=== PATIENT | male | born 1970 | race Caucasian/White ===

== ENCOUNTER → 2019-12-31 | Outpatient (CLI) | payer BC, OTHER ==
[~2019-12-31] VITALS: Ht 177.8 cm; Wt 99.8 kg
[~2019-12-31] MED LIST: LEXAPRO20 MG PO; LIPITOR40 MG PO; LISINOPRIL-HCT1 EAC2 PO
--- NOTE | ~2019-12-31 | HPC ---
[facility] [place] [address] PAIN MANAGEMENT CONSULTATION Name: DARIANA TRUJILLO Room #: REG [facility] Autumn.#: [id number] Admission: 12/31/19 Attend Phys: Earnest Delgado MD Discharge: Date of : 68 Report #: [id number] THIS REPORT FOR: cc: Dina Arredondo MD,Yasmin Delgado,Earnest Nguyen MD ~ CC: Dina Wells MD DATE OF SERVICE: 12/31/2019 CHIEF COMPLAINT: Low back pain with radiation down the posterior aspect of both hips and legs. HISTORY OF PRESENT ILLNESS: The patient is a pleasant 49-year-old gentleman who I am seeing today at the request of Dr. Wells for assessment regarding lumbar radiculopathy. He has a history of back pain that dates back a few years. He underwent a lumbar laminectomy in 2019. He has recovered, although he had a rough beginning. He had a postoperative superficial wound infection, which fortunately did not extend down into his spinal canal and he did not suffer from meningitis, but he was required to return to the hospital and placed on intravenous antibiotics. After 2-3 months of healing with excellent physical therapy, exercise and even a 40-pound weight loss from 260 pounds down to 220, he continues to complain of tightness and an ache in the gluteal muscles and radiating through the back of his legs. It is made worse with any yard work, standing or exercise and it is improved by stretching, massage. He was seen by Dr. Buenrostro and [facility] recommended an ultrasound-guided piriformis injection, which he had 3 months ago, was successful. It provided quite a bit of pain relief lasting over a month, but the pain is now returning. Her repeat MRI was obtained. The MRI shows moderate to severe central spinal stenosis at 4-5, which includes moderate right and severe left neural foraminal narrowing. This would correspond the L4 nerve root; however, the central stenosis could certainly be contributing to his bilateral radiating low back pain. There would be some question about whether or not the piriformis injections were diagnostic. Unfortunately, I do not believe that they are. There has been some evidence that anesthetizing a peripheral nerve can provide some lasting benefit even if the pain generator is higher. MEDICATIONS: Lisinopril/hydrochlorothiazide 20/25, Lexapro 20 mg daily, atorvastatin 40 mg daily. He was given a prescription for clonazepam 0.5 mg on 12/21/[address] Wells and has been taking that daily as well. He is on testosterone and receives monthly prescriptions for that from [facility] [place] [address] PAIN MANAGEMENT CONSULTATION Name: DARIANA TRUJILLO Room #: REG [facility] Goyal#: [id number] Admission: 12/31/19 Attend Phys: Earnest Delgado MD Discharge: Date of : 68 Report #: [id number] ALLERGIES: None listed. PAST MEDICAL HISTORY: Hypertension and the 2 back surgeries, first in February 2019 and I and D of back wound in March. Full recovery. SOCIAL HISTORY: He is , one child. Denies tobacco. Enjoys alcoholic seltzer and drinks 2-3 nightly. 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 He likes to do yard work and works out on a regular basis. PHYSICAL EXAMINATION: GENERAL: He is a muscular appearing 49-year-old, 5 feet 10 inches, 220 pounds. BMI is 31.6. VITAL SIGNS: Blood pressure is 115/78, heart rate 89, respirations 15, O2 sat 96% on room air with COVID mask. Pain intensity 3/10. CHEST: Clear. CARDIAC: Rhythm is regular. MUSCULOSKELETAL: Moves independently from sitting to standing position, ambulates with mild antalgic features. He has good range of motion of the lumbar spine. There is tenderness across the lumbosacral segment and a small scar from previous surgery. It should be noted that he has quite a bit of acneiform rash across the torso, which may be secondary to testosterone. Straight leg raising is only mildly positive in both the sitting and supine position. There is no loss of strength. Mild loss of sensation in the lateral calf on the left. Deep tendon reflexes are trace bilaterally at knees and ankles and symmetrical. MRI scan was reviewed, both the report and the films and I showed them to the patient. He has an L4-L5 broad-based circumferential disk bulging with facet hypertrophy. There are some small facet joint effusions. This creates moderate to severe spinal stenosis at L4-L5 and neural foraminal narrowing as described. IMPRESSION: Lumbar radiculopathy. RECOMMENDATIONS: Lumbar epidural injection, I think is reasonable. I would inject him just above the stenosis at lumbar 3-4. Followup visit is scheduled for the injection in 1-2 weeks. By: [id number] Earnest Delgado MD /nt
[2019-12-31 14:40] VITALS: BP 115/78
--- NOTE | 2019-12-31 15:01 | NUR ---
Pain Clinic Assessment: 1. History of Osteoarthritis: LUMBAR History of Rheumatoid Arthritis: Not Applicable 2. Height: 5 ft. 10 in. 177.8 cm. Weight: 220.0 lb. oz. 99.792 kg. Patient's BMI: 31.6 3. Vital Signs: BP: 115/78 Pulse: 89 Resp: 16 Temp: 02 Sat: 96 ECG Mon: 4. Pain Intensity: 3 5. Fall Risk: Dizziness: N Needs help standing or walking: N Fallen in the last 3 months: N Fall risk comments: 6. Patient on Blood Thinner: None 7. History of Hypertension: Y 8. Opioid Therapy greater than 6 weeks: N Opiate Contract Signed: 9. Risk Assessment Tool Provided: LOW 10. Functional Assessment Tool: 11. Recreational Drug Use: Never Drug Type: Tobacco Use: Never Smoker Tobacco Type: Amount or Packs/day: How Many Years: Alcohol Use: Yes Frequency: Daily Quant: 2-3 BEERS
== END ==
LOC: PAIN 07:02
PROVIDERS: ATTEND Anesthesiology Pain Medicine
DX: M54.12 Radiculopathy, cervical region (principal)

== ENCOUNTER → 2020-01-10 | Outpatient (CLI) | payer BC, OTHER ==
[~2020-01-10] VITALS: Ht 177.8 cm; Wt 96.3 kg
--- NOTE | ~2020-01-10 | HPC ---
[facility] [place] [address] PAIN MANAGEMENT CONSULTATION Name: DARIANA TRUJILLO Room #: REG [facility] Autumn.#: [id number] Admission: 01/10/20 Attend Phys: Earnest Delgado MD Discharge: Date of : 68 Report #: [id number] THIS REPORT FOR: cc: Maria T Wells MD, Sara A. MD Morgan, Richard L. MD ~ CC: Dina Wells MD DATE OF SERVICE: 01/10/2020 Followup visit for lumbar epidural injection. I saw the patient on 12/31/2019. We were unable to perform the injection on that day due to preauthorization requirements. He has returned today for the injection. I reviewed the procedure with him, potential risks and benefits. We reviewed his MRI scan, which shows an L4-L5 broad disk with facet hypertrophy and spinal stenosis. Discussed our plan to go just above at L3-L4. Questions were answered. IMPRESSION: Lumbar radiculopathy, post-laminectomy syndrome. PROCEDURE: L3-L4 epidural injection under fluoroscopic guidance. PROCEDURE NOTE: After both written and informed consent to include risk of spinal cord damage, increased pain, weakness and dural puncture, the patient was taken to the fluoroscopy suite, placed in the prone position. After sterile prep and drape, a skin wheal with lidocaine was raised. A 22-gauge epidural Tuohy needle was inserted in the midline at L3-L4 with good loss to resistance. Negative aspiration for cerebrospinal fluid or blood was noted. Then 1 mL of Omnipaque under biplanar fluoroscopy showed good spread within the epidural space. This was followed with 80 mg of triamcinolone, 0.5% lidocaine was then injected to flush the needle; it was removed. The patient was monitored for an appropriate period of time and discharged in good and stable condition. He tolerated the procedure well and was taken to recovery room for observation. Followup visit planned in 1-2 months as needed. Series of injections not indicated at this point, but we will see if he needs another injection at a followup visit. By: [id number] Earnest Delgado MD /nt
[2020-01-10 14:06] VITALS: BP 125/89
--- NOTE | 2020-01-10 14:13 | NUR ---
Pain Clinic Assessment: 1. History of Osteoarthritis: LUMBAR History of Rheumatoid Arthritis: Not Applicable 2. Height: 5 ft. 10 in. 177.8 cm. Weight: 212.2 lb. oz. 96.253 kg. Patient's BMI: 30.4 3. Vital Signs: BP: 125/89 Pulse: 96 Resp: 16 Temp: 02 Sat: 97 ECG Mon: 4. Pain Intensity: 4 5. Fall Risk: Dizziness: N Needs help standing or walking: N Fallen in the last 3 months: N Fall risk comments: 6. Patient on Blood Thinner: None 7. History of Hypertension: Y 8. Opioid Therapy greater than 6 weeks: N Opiate Contract Signed: 9. Risk Assessment Tool Provided: LOW 10. Functional Assessment Tool: 11. Recreational Drug Use: Never Drug Type: Tobacco Use: Never Smoker Tobacco Type: Amount or Packs/day: How Many Years: Alcohol Use: Yes Frequency: Daily Quant: 1-2
== END ==
LOC: PAIN 06:58
PROVIDERS: ATTEND Anesthesiology Pain Medicine
DX: M54.16 Radiculopathy, lumbar region (principal); M96.1 Postlaminectomy syndrome, not elsewhere classified; M19.90 Unspecified osteoarthritis, unspecified site; I10 Essential (primary) hypertension; Z79.899 Other long term (current) drug therapy

== ENCOUNTER → 2020-02-11 | Outpatient (CLI) | payer BC, OTHER ==
[~2020-02-11] VITALS: Ht 177.8 cm; Wt 98.5 kg
[~2020-02-11] MED LIST changes: +ADVIL200 M3 PO
--- NOTE | ~2020-02-11 | HPC ---
[facility] [place] [address] PAIN MANAGEMENT CONSULTATION Name: DARIANA TRUJILLO Room #: REG [facility] Autumn.#: [id number] Admission: 02/11/20 Attend Phys: Earnest Delgado MD Discharge: Date of : 68 Report #: [id number] CC: Earnest Wells MD DATE OF SERVICE: 02/11/2020 Followup visit for lumbar radiculopathy and chronic back pain. The patient received benefit from his epidural injection for 2 weeks with about 90% improvement. Pain has gradually returned, but it is nowhere close to baseline and he is better than prior to his injection. Most of the pain returned on the right, the left side remains pretty good. We reviewed his films and we will repeat an injection today. We no longer provide an automatic series of injections, but there are many patients for whom a couple of injections performed over 2-3 months will give them a more sustained response. That is our hope for the patient. I reviewed the procedure with him once again, potential risks and benefits, discussed other options and he is anxious to proceed. IMPRESSION: Low back pain with radiculopathy. Severe spinal stenosis, L4-L5, secondary to broad-based circumferential disk bulging and facet hypertrophy. PROCEDURE: Epidural steroid injection. After informed consent, he was taken to the fluoroscopic suite and placed in the prone position. Skin was prepped overlying the L3-L4 space just above the stenosis. A 20-gauge Tuohy epidural needle was advanced in first attempt in the epidural space with loss of resistance technique. There was no blood or CSF aspirated. A 1 mL of Omnipaque injected. Good spread of dye observed into the epidural space, was followed by 3 mL of 0.5% lidocaine mixed with 80 mg of triamcinolone. He tolerated the procedure well and he was observed for 45 minutes and discharged. Followup visit is planned only on an as needed basis. We do not plan on series of injections. By insurance company regulations and I think clinical indications that he can receive an injection periodically if this prevents him from taking additional medication. Many patients have been able to avoid surgery. We discussed the importance of ongoing exercise as an important treatment. By: [id number] Earnest Delgado MD /nt
[2020-02-11 09:12] VITALS: BP 117/80
--- NOTE | 2020-02-11 09:22 | NUR ---
Pain Clinic Assessment: 1. History of Osteoarthritis: LUMBAR History of Rheumatoid Arthritis: Not Applicable 2. Height: 5 ft. 10 in. 177.8 cm. Weight: 217.2 lb. oz. 98.521 kg. Patient's BMI: 31.2 3. Vital Signs: BP: 117/80 Pulse: 81 Resp: 16 Temp: 02 Sat: 97 ECG Mon: 4. Pain Intensity: 4 5. Fall Risk: Dizziness: N Needs help standing or walking: N Fallen in the last 3 months: N Fall risk comments: 6. Patient on Blood Thinner: None 7. History of Hypertension: Y 8. Opioid Therapy greater than 6 weeks: N Opiate Contract Signed: 9. Risk Assessment Tool Provided: LOW -0 10. Functional Assessment Tool: 11. Recreational Drug Use: Never Drug Type: Tobacco Use: Never Smoker Tobacco Type: Amount or Packs/day: How Many Years: Alcohol Use: Yes Frequency: Daily Quant: 1-3
== END | disposition home or self-care (01) ==
LOC: PAIN 06:44
PROVIDERS: ATTEND Anesthesiology Pain Medicine
DX: M51.16 Intervertebral disc disorders with radiculopathy, lumbar region (principal); M48.061 Spinal stenosis, lumbar region without neurogenic claudication; G89.29 Other chronic pain; Z98.890 Other specified postprocedural states; Z79.899 Other long term (current) drug therapy